=== PATIENT | female | born 2000 | race Caucasian/White ===

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

== ENCOUNTER 2021-12-01 12:53 | Emergency (ER) | payer SELFPAY | END 2021-12-01 14:30 | disposition home or self-care (01) | LOC: MADERS 12:53 | DX: J01.90 Acute sinusitis, unspecified (principal); J45.909 Unspecified asthma, uncomplicated; F17.290 Nicotine dependence, other tobacco product, uncomplicated | CPT/HCPCS: 99283 ==

== ENCOUNTER 2021-12-25 20:36 | Emergency (ER) | payer SELFPAY ==
[2021-12-25] MEDS ORDERED: Lidocaine 1% w/Epinephrine 1:100K 20 ML VIAL ONE (21:31)
[2021-12-25] MEDS ORDERED: Cephalexin 250 MG CAP ONE (22:12)
== END 2021-12-25 22:30 | disposition home or self-care (01) ==
LOC: MADERS 20:36
DX: S00.85XA Superficial foreign body of other part of head, initial encounter (principal); J45.909 Unspecified asthma, uncomplicated; W45.8XXA Other foreign body or object entering through skin, initial encounter
CPT/HCPCS: 64400

== ENCOUNTER 2022-12-13 19:17 | Emergency (ER) | payer SELFPAY ==
[2022-12-13] MEDS ORDERED: predniSONE 20 MG TAB ONE (20:22)
[2022-12-13] MEDS ORDERED: Amoxicillin/Potassium Clav 875 MG TAB ONE (20:22)
[2022-12-13 20:33] LABS: Pregnancy Test - Urine (BHCG) Negative (Negative); Pregu Control Background? CLEAR/WHITE (CLR/WHITE); Pregu Control Bar Appear? YES (CONTROL BAR); Specific Gravity 1.028 (1.002-1.036)
== END 2022-12-13 20:40 | disposition home or self-care (01) ==
LOC: MADERS 19:17
DX: J01.90 Acute sinusitis, unspecified (principal); H81.13 Benign paroxysmal vertigo, bilateral; H60.91 Unspecified otitis externa, right ear; F17.290 Nicotine dependence, other tobacco product, uncomplicated
CPT/HCPCS: 81025; 99283; J7512

== ENCOUNTER 2023-06-17 20:02 | Emergency (ER) | payer SELFPAY ==
[2023-06-17] MEDS ORDERED: predniSONE 20 MG TAB ONE (21:50)
== END 2023-06-17 21:59 | disposition home or self-care (01) ==
LOC: MADERS 20:02
DX: J02.9 Acute pharyngitis, unspecified (principal); F17.290 Nicotine dependence, other tobacco product, uncomplicated
CPT/HCPCS: 87081; 87430; 87804; 99283; J7512